=== PATIENT | female | born 1970 | race Caucasian/White ===

== ENCOUNTER 2020-07-29 08:59 | Emergency (ER) | payer MEDICAID, SELFPAY ==
[~2020-07-29] VITALS: Ht 160 cm; Wt 77.1 kg
[2020-07-29 09:02] VITALS: Ht 160 cm; Wt 77.1 kg
[2020-07-29 10:29] VITALS: BP 135/72
== END 2020-07-29 10:29 | disposition home or self-care (01) ==
LOC: ED 08:59
DX: U07.1 COVID-19 (principal)
CPT/HCPCS: J1885